=== PATIENT | male | born 1970 | race Caucasian/White ===

== ENCOUNTER 2024-07-23 06:32 | Day surgery (SDC) | payer MEDICAID, OTHER ==
[~2024-07-23] VITALS: Ht 182.9 cm; Wt 117.9 kg
[2024-07-23] MEDS ORDERED: fentaNYL CITRATE/PF 100 MCG/2 ML AMP ONE (07:22)
[2024-07-23] MEDS ORDERED: MIDAZOLAM HCL 5 MG/5 ML VIAL ONE (07:22)
[2024-07-23] MEDS ORDERED: SIMETHICONE 40 MG/0.6 ML ML ONE (07:22)
[2024-07-23 07:54] VITALS: O2SAT 96
[2024-07-23 10:07] VITALS: BP_SYST 146; PULSE 82; RESP 14
== END 2024-07-23 08:58 | disposition home or self-care (01) ==
LOC: SDS 06:32 → SMU 06:42 → SDS 08:58
PROVIDERS: ATTEND Internal Medicine
DX: Z12.11 Encounter for screening for malignant neoplasm of colon (principal); D12.5 Benign neoplasm of sigmoid colon; K62.1 Rectal polyp; K64.8 Other hemorrhoids; E78.5 Hyperlipidemia, unspecified; Z98.84 Bariatric surgery status
CPT/HCPCS: 45385; 99152; 88305; G0378; J2250; J3010